=== PATIENT | male | born 1950 | race African-American/Black ===

== ENCOUNTER 2020-10-13 11:27 | Emergency (ER) | payer OTHER ==
[~2020-10-13] VITALS: Ht 182.9 cm; Wt 88.5 kg
[2020-10-13] MEDS ORDERED: ASPIRIN325 MG ORAL (11:42)
[2020-10-13] MEDS ORDERED: Gadavist 7.5mMol/7.5ml vial IV PRN (11:45)
--- NOTE | 2020-10-13 12:21 | Emergency Room Report ---
History of Present Illness General Chief Complaint: Generalized Weakness Source: Patient (Dewey Jacinto MD) Present Illness HPI Patient presents with progressive weakness in his lower extremities. He has been unable to get out of bed to feed himself for the last 2 days. The weakness began in May and he was offered the chance of going into the hospital for evaluation but declined. Patient has severe lower back pain when he tries to lay flat. Is improved when he is sitting up. He denies any incontinence. He denies hesitancy. Does not feel his bladder is full. However, c/o some dysuria. Patient is status post chemotherapy in 2018 for prostate cancer. He was also treated with Lupron. H/O HTN and DM. Patient denies exposure to Covid positive contacts. No sore throat, chest pain, palpitations, nausea, vomiting, diarrhea, abdominal pain, shortness of breath, rashes, visual changes, dizziness, headache. (Dewey Jacinto MD) Allergies: Coded Allergies: No Known Allergies (Unverified , 10/13/20) COVID-19 Screening Contact w/high risk pt: No Experienced COVID-19 symptoms?: No COVID-19 Testing performed CLEARANCE DIVER: No (Dewey Jacinto MD) Patient History Past Medical History: see triage record, other - Prostate CA post chemo and Lupron Social History: Denies: smoking, alcohol use, drug use Social History Narrative lives at home by self, has chemical blender 2X week Reviewed Nursing Documentation: PMH: Agreed; PSxH: Agreed (Dewey Jacinto MD) Nursing Documentation-PMH Hx Hypertension: Yes Hx Diabetes: Yes Hx Cancer: Yes - prostate (Dewey Jacinto MD) Review of Systems All Other Systems: negative except mentioned in HPI (Dewey Jacinto MD) Physical Exam Vital Signs Date Time Temp Pulse Resp B/P (MAP) Pulse Ox O2 Delivery O2 Flow Rate FiO2 10/13/20 11:23 97.9 88 18 100/65 (77) 98 Room Air General Appearance: no apparent distress, GCS 15, non-toxic, thin, Chronically Ill Head: normocephalic, atraumatic Eyes: bilateral eye PERRL, bilateral eye other - Arcus bilaterally ENT: dry mucus membranes Neck: full range of motion, supple Respiratory: chest non-tender, other - Slight tachypnea Cardiovascular #1: no edema, tachycardia Cardiovascular #2: 2+ radial (R) Gastrointestinal: normal bowel sounds, non tender, soft, no mass Rectal: normal rectal tone Genitourinary: no CVA tenderness Musculoskeletal: other - Point tenderness lumbar spine approximately L4-5 Neurologic: inspector salvage III-XII nml as tested, DTRs symmetric - decreased, oriented x3, sensory intact, cerebellar normal, motor weakness - Bilateral lower extremities 3-4/5, speech normal Psychiatric: depressed affect Reflexes: 1+ knee (R), 1+ knee (L) Skin: no rash, warm/dry (Dewey Jacinto MD) Medical Decision Making Diagnostic Impression: Primary Impression: Bilateral leg weakness Additional Impressions: Dehydration Coagulopathy Metastatic prostate cancer Elevated liver function tests Metabolic acidosis Pyuria Trichomoniasis of bladder ER Course Patient presents with aggressive lower extremity weakness since May but now unable to ambulate for approximately 1week. He has a history of prostate cancer. Differential includes polymyalgia rheumatica, situs, space-occupying lesion in his back (he is complaining about back pain also) electrolyte imbalanc e, dehydration, UTI amongst others. Complicated patient who has objective significant bilateral leg weakness. Evaluation with chest x-ray, EKG, MRI of T- spine and L-spine and labs. Patient unable to manage at home. Exam consistent with cord motor compression, not cauda equina syndrome. EKG sinus tachycardia [address]-T wave changes. Chest x-ray no infiltrates but looking like COPD. WBC low. H/H high. Platelets normal. Elevated LFTs. Elevated INR. Low CO2. Normal renal function. Patient with back pain and needing to be treated prior to MRI. Toradol administered. He is unable to lay flat without pain in his back. Elevated LFTs and INR bring into question possible liver metastases. Patient refusing MRI - then agrees with analgesia. Discussed with Dr. Tobar who accepts patient in transfer pending MRI. As patient occasionally dyspneic venous blood gas ordered. Metabolic acidosis detected. Signed out to Dr. Cortes. Pending UA. Laboratory Tests Test 10/13/20 12:05 10/13/20 16:00 White Blood Count 2.9 K/UL (4.8-10.8) L Red Blood Count 6.37 M/UL (4.70-6.10) H Hemoglobin 16.6 G/DL (14.2-18.0) Hematocrit 52.8 % (42.0-52.0) H Mean Corpuscular Volume 83 FL (80-99) Mean Corpuscular Hemoglobin 26.1 PG (27.0-31.0) L Mean Corpuscular Hemoglobin Concent 31.5 G/DL (32.0-36.0) L Red Cell Distribution Width 14.8 % (11.6-14.8) Platelet Count 164 K/UL (150-450) Mean Platelet Volume 6.9 FL (6.5-10.1) Neutrophils (%) (Auto) % (45.0-75.0) Lymphocytes (%) (Auto) % (20.0-45.0) Monocytes (%) (Auto) % (1.0-10.0) Eosinophils (%) (Auto) % (0.0-3.0) Basophils (%) (Auto) % (0.0-2.0) Differential Total Cells Counted 100 Neutrophils % (Manual) 51 % (45-75) Lymphocytes % (Manual) 37 % (20-45) Monocytes % (Manual) 12 % (1-10) H Eosinophils % (Manual) 0 % (0-3) Basophils % (Manual) 0 % (0-2) Band Neutrophils 0 % (0-8) Platelet Estimate Adequate Platelet Morphology Normal Anisocytosis 1+ Erythrocyte Sedimentation Rate 13 MM/HR (0-20) Prothrombin Time 18.5 SEC (9.30-11.50) H Prothrombin Time INR 1.8 (0.9-1.1) H Activated Partial Thromboplast Time 29 SEC (23-33) Sodium Level 135 MMOL/L (136-145) L Potassium Level 4.0 MMOL/L (3.5-5.1) Chloride Level 100 MMOL/L (98-107) Carbon Dioxide Level 17 MMOL/L (21-32) L Anion Gap 18 mmol/L (5-15) H Blood Urea Nitrogen 16 mg/dL (7-18) Creatinine 0.8 MG/DL (0.55-1.30) Estimated Glomerular Filtration Rate > 60 mL/min (>60) Glucose Level 69 MG/DL (74-106) L Calcium Level 9.4 MG/DL (8.5-10.1) Total Bilirubin 0.7 MG/DL (0.2-1.0) Aspartate Amino Transferase (AST) 124 U/L (15-37) H Alanine Aminotransferase (ALT) 144 U/L (12-78) H Alkaline Phosphatase 719 U/L (46-116) H Total Creatine Kinase 331 U/L (26-308) H Troponin I 0.000 ng/mL (0.000-0.056) C-Reactive Protein, Quantitative 0.8 mg/dL (0.00-0.90) Pro-B-Type Natriuretic Peptide 26 pg/mL (0-125) Total Protein 8.0 G/DL (6.4-8.2) Albumin 4.0 G/DL (3.4-5.0) Globulin 4.0 g/dL Albumin/Globulin Ratio 1.0 (1.0-2.7) Thyroid Stimulating Hormone (TSH) 2.036 uiU/mL (0.358-3.740) Venous Blood pH 7.290 Venous Blood Partial Pressure CO2 38.8 Venous Blood Partial Pressure O2 13.3 Venous Blood HCO3 18.2 Venous Blood Base Excess -7.7 Venous Blood Carboxyhemoglobin 0.3 % (0.5-1.5) L Methemoglobin 2.3 Microbiology Date/Time Source Procedure Growth Status 10/13/20 13:35 Nasopharynx SARS-CoV-2 Antigen (Rapid)(MEET) - Final Complete (Dewey Jacinto MD) ER Course Assumed care of the patient from the previous provider at approximately 1500. Please refer to initial note for full history and physical exam. Briefly, 69-year-old male history of prostate cancer presenting for lower extremity weakness. At the time of signout awaiting MRI results and transferred to [facility] where the patient is already accepted. MRI shows metastatic disease to the lumbar spine with posterior extension causing spinal stenosis. Admitting team notified of MRI results. Patient was unable to void and a Kay was placed. Only 50 cc of output. Continuing IV fluids. Awaiting transport. (Gilmar Cortes MD) EKG Diagnostic Results Rate: tachycardiac Rhythm: NSR (Dewey Jacinto MD) Rhythm Strip Diag. Results EP Interpretation: yes Rhythm: NSR, no PVC's, no ectopy (Dewey Jacinto MD) Chest X-Ray Diagnostic Results Chest X-Ray Diagnostic Results : Chest X-Ray Ordered: Yes # of Views/Limited/Complete: 1 View Indication: Other EP Interpretation: Yes Interpretation: no consolidation, no effusion, no pneumothorax Impression: No acute disease Electronically Signed by: Electronically signed by Dewey Jacinto MD (Dewey Jacinto MD) CT/MRI/US Diagnostic Results CT/MRI/US Diagnostic Results : Imaging Test Ordered: MRI L Spine Impression Impression: Evidence of extensive diffuse marrow abnormality of the lumbar spine, as described, most likely representing disseminated neoplasm. At multiple levels there is evidence of tumor expanding the posterior elements and extending into the spinal canal, resulting in multilevel spinal stenosis as detailed on a level by level basis above. If patient can tolerate contrast scanning. This would be useful to better delineate the extent of disease. (Dewey Jacinto MD) Last Vital Signs Date Time Temp Pulse Resp B/P (MAP) Pulse Ox O2 Delivery O2 Flow Rate FiO2 10/13/20 14:38 92 18 109/66 96 Room Air 10/13/20 11:23 97.9 Status: improved (Dewey Jacinto MD) Disposition: SHORT-TERM HOSP Condition: Serious Dewey Jacinto MD Oct 13, 2020 12:21 Gilmar Cortes MD Oct 13, 2020 19:24
[2020-10-13 12:30] LABS: HEMATOCRIT 52.8 % (42.0-52.0); HEMOGLOBIN 16.6 G/DL (14.2-18.0); MEAN CORPUSCULAR VOLUME 83 FL (80-99); PLATELET COUNT 164 K/UL (150-450); RED BLOOD COUNT 6.37 M/UL (4.70-6.10); RED CELL DISTRIBUTION WIDTH 14.8 % (11.6-14.8); WHITE BLOOD COUNT 2.9 K/UL (4.8-10.8)
--- NOTE | 2020-10-13 12:33 | NUR ---
ED Nurse Note: pt states increasing weakness since last oct, unable to move legs the past 2 days. pt presents with severe weakness in bilateral lower extremities. pt states low back pain. pt has iv placed.
[2020-10-13 12:36] LABS: INR 1.8 (0.9-1.1)
[2020-10-13 12:37] LABS: ANION GAP 18 mmol/L (5-15); BLOOD UREA NITROGEN 16 mg/dL (7-18); CALCIUM 9.4 MG/DL (8.5-10.1); CARBON DIOXIDE 17 MMOL/L (21-32); CHLORIDE 100 MMOL/L (98-107); CREATININE 0.8 MG/DL (0.55-1.30); SODIUM 135 MMOL/L (136-145)
[2020-10-13 12:49] LABS: ALANINE AMINOTRANSFERASE 144 U/L (12-78); ALKALINE PHOSPHATASE 719 U/L (46-116); ASPARTATE AMINO TRANSFERASE 124 U/L (15-37); BILIRUBIN,TOTAL 0.7 MG/DL (0.2-1.0); CREATINE KINASE 331 U/L (26-308)
--- NOTE | 2020-10-13 13:00 | NUR ---
ED Nurse Note: pt needed redraw on lavender. redraw sent pt getting taken to mri now. pt verbalizes understanding of plan of care.
[2020-10-13] MEDS ORDERED: Ketorolac 30mg Inj IV ONE (13:15)
[2020-10-13] MEDS ORDERED: Morphine Sulfate 4mg/ml Inj (IV USE ONLY) IVP ONE (14:15)
--- NOTE | 2020-10-13 14:16 | NUR ---
ED Nurse Note:covid swab sent
[2020-10-13 14:38] VITALS: BP 109/66
--- NOTE | 2020-10-13 15:04 | Diagnostic Imaging Report ---
Indication: Shortness of breath Technique: One view of the chest Comparison: none Findings: Lung bases are clear. The heart size is normal. The aorta is tortuous. The upper mediastinum is unremarkable. Impression: Negative
--- NOTE | 2020-10-13 15:32 | NUR ---
ED Nurse Note: pt returned from MRI. pt in room. will continue to monitor.
--- NOTE | 2020-10-13 17:25 | Diagnostic Imaging Report ---
Indication: Low back pain, weakness, inability to walk for 3 days Technique: Sagittal T1 and T2 fast spin echo, sagittal STIR, axial T1 and T2 fast spin-echo images of the lumbar spine. Fat-saturated T1 weighted images were also obtained in this patient noncontrast exam, but patient unable to remain in the scanner for contrast examination. Comparison: none Findings: There is diffusely markedly decreased T1 signal throughout the vertebral marrow, which is slightly higher at the L4 and L5 vertebral bodies. Height T1 signal anteriorly within the L4 and L5 vertebral bodies likely indicates meningiomas. There is evidence of diffuse marrow edema, less striking in L3 and L4, on the STIR images. There is also abnormal marrow signal within the sacrum as well as the bilateral iliac bones. Included extra spinal soft tissues are unremarkable. Vertebral body heights are preserved. Disc spaces are preserved. The conus medullaris terminates at the L1 level. The bony alignment is normal. At T12-L1, there is considerable hypertrophy of the posterior elements and possibly soft tissue material invading the spinal canal resulting in mild narrowing spinal canal at this level, and obliteration of the CSF. At L1-2, no significant disc bulge or protrusion. However, at the L2 level, there is evidence of soft tissue expanding the posterior elements and resulting in moderate narrowing of the spinal canal. Soft tissue extends beyond the spinous process as well. At L2-3, no significant disc bulge or protrusion or neural foraminal stenosis. However, tissue extends beyond the posterior elements and probably beyond the posterior margin of the vertebral body, resulting in significant narrowing of the spinal canal to approximately 5 mm minimum AP dimension, markedly flattening the nerve roots. At L3-4, facet hypertrophy results in moderate narrowing of the bilateral neural foramina. Short pedicles result in moderate narrowing of the spinal canal at this level. Likewise noted L4 is soft tissue expanding the laminae and probably the posterior margin of the vertebral body, likewise resulting in significant narrowing of the spinal canal. At L4-5, there is circumferential annular bulge as well as broad-based central posterior disc protrusion. This results in moderate narrowing the spinal canal this level. More inferiorly posterior to the L5 vertebral body, there is evidence of expansion of the posterior elements and possibly some soft tissue extending into the spinal canal. This does not result in significant spinal canal stenosis. There is mild narrowing of the neural foramina at this level. At L5-S1, there is mild circumferential annular bulge. This does not significantly narrow the spinal canal. There is mild to moderate narrowing of the bilateral neural foramina. Tumor protrudes posterior to S1 but does not significantly narrow the canal at this level. Impression: Evidence of extensive diffuse marrow abnormality of the lumbar spine, as described, most likely representing disseminated neoplasm. At multiple levels there is evidence of tumor expanding the posterior elements and extending into the spinal canal, resulting in multilevel spinal stenosis as detailed on a level by level basis above. If patient can tolerate contrast scanning. This would be useful to better delineate the extent of disease. Degenerative changes, as described Findings discussed by phone with Dr. Cortes at the time of interpretation
[2020-10-13 18:17] VITALS: BP 99/52
--- NOTE | 2020-10-13 19:26 | NUR ---
ED Nurse Note[facility]
--- NOTE | 2020-10-13 19:35 | NUR ---
ED Nurse Note: ER MD gave verbal order for a arriola. sent urine to lab
[2020-10-13 20:00] VITALS: BP 116/83
--- NOTE | 2020-10-13 20:00 | NUR ---
ER DISCHARGE NOTE: Patient is cleared to be transfered per ERMD, pt is aox4, on room air, with stable vital signs. pt was given dc and prescription instructions, pt was able to verbalize understanding, and signed consent to be transfered. pt left on gurney with s crew. pt took all belongings. PT left with life line S
[2020-10-13 20:23] LABS: APPEARANCE,URINE CLEAR; BILIRUBIN, URINE NEGATIVE (NEGATIVE); GLUCOSE, URINE (UA) NEGATIVE (NEGATIVE); KETONES,URINE 4+ (NEGATIVE); LEUKOCYTE ESTERASE ,URINE 1+ (NEGATIVE); NITRITE,URINE NEGATIVE (NEGATIVE); PH,URINE 6 (4.5-8.0); PROTEIN,URINE 2+ (NEGATIVE); UROBILINOGEN,URINE NORMAL MG/DL (0.0-1.0)
[2020-10-13 20:26] LABS: COLOR,URINE YELLOW
== END 2020-10-13 20:00 | disposition short-term general hospital (02) ==
LOC: EDBD 11:27 → EMR 11:45
DX: R53.1 Weakness (principal); E86.0 Dehydration; R79.89 Other specified abnormal findings of blood chemistry; E87.2 Acidosis; R82.81 Pyuria; A59.03 Trichomonal cystitis and urethritis; Z85.46 Personal history of malignant neoplasm of prostate; I10 Essential (primary) hypertension; E11.9 Type 2 diabetes mellitus without complications; R00.0 Tachycardia, unspecified
CPT/HCPCS: 36415; 51702; 71045; 72148; 80053; 81003; 82550; 82803; 83880; 84443; 84484; 85007; 85025; 85610; 85651; 85730; 86140; 87086; 93005; 96361; 96374; 96375; 99285; J1885; J2270; J2405; J7030